=== PATIENT | male | born 1995 | race Caucasian/White ===

== ENCOUNTER 2019-04-10 22:38 | Inpatient (IN) ==
[2019-04-10 23:10] LABS: Basophils # 0.1 K/mcL (0.0-0.2); Basophils % 0.4 %; Eosinophils # 0.2 K/mcL (0.0-0.6); Eosinophils % 1.4 %; Hematocrit 47.3 % (37.5-50.1); Hemoglobin 15.9 g/dL (12.9-16.9); Immature Granulocytes % 0.4 % (0-4); Lymphocytes # 3.2 K/mcL (0.6-4.6); Lymphocytes % 22.4 %; Mean Corpuscular HGB Conc 33.6 g/dL (31.6-35.5); Mean Corpuscular Hemoglobin 31.1 pg (28.0-33.3); Mean Corpuscular Volume 92.6 fL (83.0-100.0); Mean Platelet Volume 9.2 fL (9.4-12.4); Monocytes # 0.9 K/mcL (0.0-1.3); Monocytes % 6.4 %; Neutrophils # 9.9 K/mcL (1.6-8.9); Platelet Count 269 K/mcL (140-400); Red Blood Count 5.11 M/mcL (4.19-5.50); Red Cell Distribution Width 12.6 % (11.5-14.5); White Blood Count 14.3 K/mcL (4.3-11.1)
[2019-04-10 23:11] LABS: Bilirubin,Urine Negative (Negative); Blood,Urine Negative (Negative); Clarity,Urine Clear (Clear); Color,Urine Yellow (Yellow); Glucose,Urine (UA) Normal (Normal); Ketones,Urine Negative (Negative); Leukocyte Esterase,Urine Negative (Negative); Nitrite,Urine Negative (Negative); Protein,Urine Negative (Neg-Trace); Specific Gravity,Urine 1.013 (1.010-1.025); Urobilinogen,Urine Normal (Normal)
[2019-04-10 23:21] LABS: Amphetamine Screen,Urine Negative ng/mL (Cutoff=1000); Barbiturate Screen,Urine Negative ng/mL (Cutoff=200); Benzodiazepines Screen,Urine Negative ng/mL (Cutoff=200); Cannabinoid Screen,Urine Negative ng/mL (Cutoff = 50); Cocaine Screen,Urine Negative ng/mL (Cutoff= 300); Opiate Screen,Urine Negative ng/mL (Cutoff=300); Phencyclidine Screen,Urine Negative ng/mL (Cutoff=25)
--- NOTE | 2019-04-10 23:26 | Emergency Department Note ---
Disposition Clinical Impression: Encounter for behavioral health screening, Self-harming behaviour Disposition: Admitted As Inpatient Condition: Good Time of Disposition: 03:47 General Adult HPI - General Chief complaint: ED Psychiatric Symptoms Stated complaint: "1a eval" Time Seen by Provider: 04/10/19 22:44 Source: patient, EMS Limitations: no limitations - History of Present Illness HPI Narrative: 23-year-old man, with significant substance abuse history, presents via EMS from a care home/treatment facility after screaming and losing his temper and having self harming behavior. Patient punched himself in the head multiple times after becoming frustratied. The patient currently does not have suicidal ideations, does not have homicidal ideations, has never had suicidal or homicidal thoughts in the past, does not have access to weapons. He currently does not have psychosis, does not have hallucinations, does not seem to be a harm to himself or others. Pain Scale: 0 - Related Data Previous Rx's Medication Instructions Recorded Ibuprofen [Motrin] 800 mg PO Q8HR PRN #30 tablet 03/17/18 Allergies Allergy/AdvReac Type Severity Reaction Status Date / Time No Known Allergies Allergy Verified 03/17/18 14:39 All systems ED: reviewed and negative except as stated. Review of Systems: As Per HPI Constitutional: Denies: fever, chills, weakness Psychiatric: Denies: as per HPI, anxiety, depression, suicidal thoughts, homicidal thoughts, auditory hallucinations, visual hallucinations Past Medical History - Past Medical History Medical history: Reports: no medical history Psychiatric history: Reports: no psych history - Social History Smoking Status: Current every day smoker Smokeless Tobacco Status: Yes Alcohol use: Reports: occasionally Drug use: Reports: cocaine, marijuana, methamphetamine, IV Drug Use Physical Exam - General Limitations: no limitations General appearance: alert, in no apparent distress Course Course Narrative: Basic labs will be ordered including urine tox screen to clear the patient medically is. Behavioral health will see him once he has clearance Vital Signs Temperature 98.2 F 04/10/19 22:41 Pulse Rate 95 04/10/19 22:41 Respiratory Rate 16 04/10/19 22:41 Blood Pressure 154/99 04/10/19 22:41 O2 Sat by Pulse Oximetry 98 04/10/19 22:41 Temperature 98.2 F 04/10/19 22:41 Pulse Rate 95 04/10/19 22:41 Respiratory Rate 16 04/10/19 22:41 Blood Pressure 154/99 04/10/19 22:41 O2 Sat by Pulse Oximetry 98 04/10/19 22:41 Oxygen Delivery Oxygen Delivery Room Air Medical Decision Making - MDM Narrative Medical decision making narrative: Patient was treated upon arrival to the emergency Department, basic labs were drawn, including a urine tox screen, CBC, and BMP. At this time, the patient is resting comfortably, he does not endorse suicidal ideation to me or homicidal ideation. He said he is frustrated with his life, because he has been in and out of halfway, and has had significant drug issues in the past. HE punched himself in the face out of frustration, but he denied ever having any suicidal thoughts Currently, he lives in a care home/drug rehabilitation. He had no access to weapons. He is not hearing any voices, has no psychosis, and is thinking linearly. At this time, his labs are unremarkable, I believe he is able to be medically cleared and can be seen by behavioral health - Medical Records Medical records reviewed: Yes I reviewed the patient's medical records. - Lab Data Lab results reviewed: Yes I reviewed the patient's lab results. Result diagrams: 04/10/19 22:59 04/10/19 22:57 Lab Results 04/10/19 04/10/19 04/10/19 Range/Units 22:56 22:56 22:57 WBC (4.3-11.1) K/mcL RBC (4.19-5.50) M/mcL Hgb (12.9-16.9) g/dL Hct (37.5-50.1) % MCV (83.0-100.0) fL MCH (28.0-33.3) pg MCHC (31.6-35.5) g/dL RDW (11.5-14.5) % Plt Count (140-400) K/mcL MPV (9.4-12.4) fL Immature Gran % (0-4) % Seg Neutrophils % % Lymphocytes % % Monocytes % % Eosinophils % % Basophils % % Neutrophils # (1.6-8.9) K/mcL Lymphocytes # (0.6-4.6) K/mcL Monocytes # (0.0-1.3) K/mcL Eosinophils # (0.0-0.6) K/mcL Basophils # (0.0-0.2) K/mcL Sodium 137 (136-145) mEq/L Potassium 3.5 (3.5-5.1) mEq/L Chloride 103 (98-107) mEq/L Carbon Dioxide 26 (23-29) mEq/L BUN 13 (6-20) mg/dL Creatinine 1.12 (0.70-1.30) mg/dL Est GFR ( Amer) > 60 (> 60) Est GFR (Non-Af Amer) > 60 (> 60) BUN/Creatinine Ratio 12 (6-26) Glucose 108 H (70-105) mg/dL Calculated Osmolality 285 (280-300) Calcium 9.7 (8.6-10.3) mg/dL Total Bilirubin 0.4 (0.3-1.0) mg/dL Direct Bilirubin 0.1 (0.0-0.2) mg/dL Indirect Bilirubin 0.3 (0.0-1.2) mg/dL AST 30 (13-39) Units/L ALT 48 (7-52) Units/L Alkaline Phosphatase 74 (34-104) Units/L Serum Total Protein 7.8 (6.4-8.9) g/dL Albumin 5.1 (3.5-5.7) g/dL Globulin 2.7 (2.4-3.5) g/dL Albumin/Globulin Ratio 1.9 (1.1-2.2) TSH 2.353 (0.340-5.600) mcIU/mL Urine Color Yellow (Yellow) Urine Clarity Clear (Clear) Urine pH 7.0 (5.0-8.0) pH Units Ur Specific [place] 1.013 (1.010-1.025) Urine Protein Negative (Neg-Trace) mg/dL Urine Glucose (UA) Normal (Normal) mg/dL Urine Ketones Negative (Negative) mg/dL Urine Blood Negative (Negative) Urine Nitrite Negative (Negative) Urine Bilirubin Negative (Negative) Urine Urobilinogen Normal (Normal) mg/dL Ur Leukocyte Esterase Negative (Negative) Salicylates < 2.5 L (15.0-30.0) mg/dL Urine Opiates Screen Negative (Kvwoqh=645) ng/mL Ur Buprenorphine Scrn Negative (Cutoff=5) ng/mL Acetaminophen < 10 L (10-20) mcg/mL Ur Barbiturates Screen Negative (Ghqhzs=463) ng/mL Ur Phencyclidine Scrn Negative (Cutoff=25) ng/mL Ur Amphetamines Screen Negative (Fxaggk=3955) ng/mL U Benzodiazepines Scrn Negative (Umivsb=535) ng/mL Urine Cocaine Screen Negative (Cutoff= 300) ng/mL U Marijuana (THC) Screen Negative (Cutoff = 50) ng/mL Ur Drug Screen Interp See Below Ethyl Alcohol < 10 (Less than 10) mg/dL 04/10/19 Range/Units 22:59 WBC 14.3 H (4.3-11.1) K/mcL RBC 5.11 (4.19-5.50) M/mcL Hgb 15.9 (12.9-16.9) g/dL Hct 47.3 (37.5-50.1) % MCV 92.6 (83.0-100.0) fL MCH 31.1 (28.0-33.3) pg MCHC 33.6 (31.6-35.5) g/dL RDW 12.6 (11.5-14.5) % Plt Count 269 (140-400) K/mcL MPV 9.2 L (9.4-12.4) fL Immature Gran % 0.4 (0-4) % Seg Neutrophils % 69.0 % Lymphocytes % 22.4 % Monocytes % 6.4 % Eosinophils % 1.4 % Basophils % 0.4 % Neutrophils # 9.9 H (1.6-8.9) K/mcL Lymphocytes # 3.2 (0.6-4.6) K/mcL Monocytes # 0.9 (0.0-1.3) K/mcL Eosinophils # 0.2 (0.0-0.6) K/mcL Basophils # 0.1 (0.0-0.2) K/mcL Sodium (136-145) mEq/L Potassium (3.5-5.1) mEq/L Chloride (98-107) mEq/L Carbon Dioxide (23-29) mEq/L BUN (6-20) mg/dL Creatinine (0.70-1.30) mg/dL Est GFR ( Amer) (> 60) Est GFR (Non-Af Amer) (> 60) BUN/Creatinine Ratio (6-26) Glucose (70-105) mg/dL Calculated Osmolality (280-300) Calcium (8.6-10.3) mg/dL Total Bilirubin (0.3-1.0) mg/dL Direct Bilirubin (0.0-0.2) mg/dL Indirect Bilirubin (0.0-1.2) mg/dL AST (13-39) Units/L ALT (7-52) Units/L Alkaline Phosphatase (34-104) Units/L Serum Total Protein (6.4-8.9) g/dL Albumin (3.5-5.7) g/dL Globulin (2.4-3.5) g/dL Albumin/Globulin Ratio (1.1-2.2) TSH (0.340-5.600) mcIU/mL Urine Color (Yellow) Urine Clarity (Clear) Urine pH (5.0-8.0) pH Units Ur Specific [place] (1.010-1.025) Urine Protein (Neg-Trace) mg/dL Urine Glucose (UA) (Normal) mg/dL Urine Ketones (Negative) mg/dL Urine Blood (Negative) Urine Nitrite (Negative) Urine Bilirubin (Negative) Urine Urobilinogen (Normal) mg/dL Ur Leukocyte Esterase (Negative) Salicylates (15.0-30.0) mg/dL Urine Opiates Screen (Ejutkn=966) ng/mL Ur Buprenorphine Scrn (Cutoff=5) ng/mL Acetaminophen (10-20) mcg/mL Ur Barbiturates Screen (Opgnix=461) ng/mL Ur Phencyclidine Scrn (Cutoff=25) ng/mL Ur Amphetamines Screen (Dzzjlo=1500) ng/mL U Benzodiazepines Scrn (Qkzvos=757) ng/mL Urine Cocaine Screen (Cutoff= 300) ng/mL U Marijuana (THC) Screen (Cutoff = 50) ng/mL Ur Drug Screen Interp Ethyl Alcohol (Less than 10) mg/dL
[2019-04-10 23:33] LABS: Acetaminophen < 10 mcg/mL (10-20); Alanine Aminotransferase 48 Units/L (7-52); Albumin 5.1 g/dL (3.5-5.7); Albumin/Globulin Ratio 1.9 (1.1-2.2); Alkaline Phosphatase 74 Units/L (34-104); Aspartate Amino Transferase 30 Units/L (13-39); BUN/Creatinine Ratio 12 (6-26); Bilirubin,Direct 0.1 mg/dL (0.0-0.2); Bilirubin,Indirect 0.3 mg/dL (0.0-1.2); Bilirubin,Total 0.4 mg/dL (0.3-1.0); Blood Urea Nitrogen 13 mg/dL (6-20); Calcium 9.7 mg/dL (8.6-10.3); Carbon Dioxide 26 mEq/L (23-29); Chloride 103 mEq/L (98-107); Ethanol < 10 mg/dL (Less than 10); Globulin 2.7 g/dL (2.4-3.5); Glucose 108 mg/dL (70-105); Osmolality,Calculated 285 (280-300); Potassium 3.5 mEq/L (3.5-5.1); Salicylate < 2.5 mg/dL (15.0-30.0); Sodium 137 mEq/L (136-145); Total Protein 7.8 g/dL (6.4-8.9); eGFR For African Americans > 60 (> 60); eGFR For Non-African Americans > 60 (> 60)
[2019-04-10 23:46] LABS: Thyroid Stimulating Hormone 2.353 mcIU/mL (0.340-5.600)
--- NOTE | 2019-04-11 01:10 | Emergency Department Note ---
Disposition Clinical Impression: Encounter for behavioral health screening, Self-harming behaviour Disposition: Admitted As Inpatient Condition: Good Time of Disposition: 03:47 General Adult HPI - General Chief complaint: ED Psychiatric Symptoms Stated complaint: "1a eval" Time Seen by Provider: 04/10/19 22:44 Source: patient, EMS Limitations: no limitations Nursing Notes Reviewed: Yes Vital Signs Reviewed: Yes - History of Present Illness Pain Scale: 0 - Related Data Previous Rx's Medication Instructions Recorded Ibuprofen [Motrin] 800 mg PO Q8HR PRN #30 tablet 03/17/18 Allergies Allergy/AdvReac Type Severity Reaction Status Date / Time No Known Allergies Allergy Verified 03/17/18 14:39 Constitutional: Denies: fever, chills, weakness Psychiatric: Denies: as per HPI, anxiety, depression, suicidal thoughts, homicidal thoughts, auditory hallucinations, visual hallucinations Past Medical History - Past Medical History Medical history: Reports: no medical history Psychiatric history: Reports: no psych history - Social History Smoking Status: Current every day smoker Smokeless Tobacco Status: Yes Alcohol use: Reports: occasionally Drug use: Reports: cocaine, marijuana, methamphetamine, IV Drug Use Physical Exam - General Limitations: no limitations General appearance: alert, in no apparent distress Course Vital Signs Temperature 98.2 F 04/10/19 22:41 Pulse Rate 95 04/10/19 22:41 Respiratory Rate 16 04/10/19 22:41 Blood Pressure 154/99 04/10/19 22:41 O2 Sat by Pulse Oximetry 98 04/10/19 22:41 Temperature 98.2 F 04/10/19 22:41 Pulse Rate 95 04/10/19 22:41 Respiratory Rate 16 04/10/19 22:41 Blood Pressure 154/99 04/10/19 22:41 O2 Sat by Pulse Oximetry 98 04/10/19 22:41 Oxygen Delivery Oxygen Delivery Room Air Medical Decision Making - Lab Data Result diagrams: 04/10/19 22:59 04/10/19 22:57 Lab Results 04/10/19 04/10/19 04/10/19 Range/Units 22:56 22:56 22:57 WBC (4.3-11.1) K/mcL RBC (4.19-5.50) M/mcL Hgb (12.9-16.9) g/dL Hct (37.5-50.1) % MCV (83.0-100.0) fL MCH (28.0-33.3) pg MCHC (31.6-35.5) g/dL RDW (11.5-14.5) % Plt Count (140-400) K/mcL MPV (9.4-12.4) fL Immature Gran % (0-4) % Seg Neutrophils % % Lymphocytes % % Monocytes % % Eosinophils % % Basophils % % Neutrophils # (1.6-8.9) K/mcL Lymphocytes # (0.6-4.6) K/mcL Monocytes # (0.0-1.3) K/mcL Eosinophils # (0.0-0.6) K/mcL Basophils # (0.0-0.2) K/mcL Sodium 137 (136-145) mEq/L Potassium 3.5 (3.5-5.1) mEq/L Chloride 103 (98-107) mEq/L Carbon Dioxide 26 (23-29) mEq/L BUN 13 (6-20) mg/dL Creatinine 1.12 (0.70-1.30) mg/dL Est GFR ( Amer) > 60 (> 60) Est GFR (Non-Af Amer) > 60 (> 60) BUN/Creatinine Ratio 12 (6-26) Glucose 108 H (70-105) mg/dL Calculated Osmolality 285 (280-300) Calcium 9.7 (8.6-10.3) mg/dL Total Bilirubin 0.4 (0.3-1.0) mg/dL Direct Bilirubin 0.1 (0.0-0.2) mg/dL Indirect Bilirubin 0.3 (0.0-1.2) mg/dL AST 30 (13-39) Units/L ALT 48 (7-52) Units/L Alkaline Phosphatase 74 (34-104) Units/L Serum Total Protein 7.8 (6.4-8.9) g/dL Albumin 5.1 (3.5-5.7) g/dL Globulin 2.7 (2.4-3.5) g/dL Albumin/Globulin Ratio 1.9 (1.1-2.2) TSH 2.353 (0.340-5.600) mcIU/mL Urine Color Yellow (Yellow) Urine Clarity Clear (Clear) Urine pH 7.0 (5.0-8.0) pH Units Ur Specific [place] 1.013 (1.010-1.025) Urine Protein Negative (Neg-Trace) mg/dL Urine Glucose (UA) Normal (Normal) mg/dL Urine Ketones Negative (Negative) mg/dL Urine Blood Negative (Negative) Urine Nitrite Negative (Negative) Urine Bilirubin Negative (Negative) Urine Urobilinogen Normal (Normal) mg/dL Ur Leukocyte Esterase Negative (Negative) Salicylates < 2.5 L (15.0-30.0) mg/dL Urine Opiates Screen Negative (Ppchqj=254) ng/mL Ur Buprenorphine Scrn Negative (Cutoff=5) ng/mL Acetaminophen < 10 L (10-20) mcg/mL Ur Barbiturates Screen Negative (Ckzjdh=535) ng/mL Ur Phencyclidine Scrn Negative (Cutoff=25) ng/mL Ur Amphetamines Screen Negative (Icqvgy=2471) ng/mL U Benzodiazepines Scrn Negative (Tijlvc=861) ng/mL Urine Cocaine Screen Negative (Cutoff= 300) ng/mL U Marijuana (THC) Screen Negative (Cutoff = 50) ng/mL Ur Drug Screen Interp See Below Ethyl Alcohol < 10 (Less than 10) mg/dL 04/10/19 Range/Units 22:59 WBC 14.3 H (4.3-11.1) K/mcL RBC 5.11 (4.19-5.50) M/mcL Hgb 15.9 (12.9-16.9) g/dL Hct 47.3 (37.5-50.1) % MCV 92.6 (83.0-100.0) fL MCH 31.1 (28.0-33.3) pg MCHC 33.6 (31.6-35.5) g/dL RDW 12.6 (11.5-14.5) % Plt Count 269 (140-400) K/mcL MPV 9.2 L (9.4-12.4) fL Immature Gran % 0.4 (0-4) % Seg Neutrophils % 69.0 % Lymphocytes % 22.4 % Monocytes % 6.4 % Eosinophils % 1.4 % Basophils % 0.4 % Neutrophils # 9.9 H (1.6-8.9) K/mcL Lymphocytes # 3.2 (0.6-4.6) K/mcL Monocytes # 0.9 (0.0-1.3) K/mcL Eosinophils # 0.2 (0.0-0.6) K/mcL Basophils # 0.1 (0.0-0.2) K/mcL Sodium (136-145) mEq/L Potassium (3.5-5.1) mEq/L Chloride (98-107) mEq/L Carbon Dioxide (23-29) mEq/L BUN (6-20) mg/dL Creatinine (0.70-1.30) mg/dL Est GFR ( Amer) (> 60) Est GFR (Non-Af Amer) (> 60) BUN/Creatinine Ratio (6-26) Glucose (70-105) mg/dL Calculated Osmolality (280-300) Calcium (8.6-10.3) mg/dL Total Bilirubin (0.3-1.0) mg/dL Direct Bilirubin (0.0-0.2) mg/dL Indirect Bilirubin (0.0-1.2) mg/dL AST (13-39) Units/L ALT (7-52) Units/L Alkaline Phosphatase (34-104) Units/L Serum Total Protein (6.4-8.9) g/dL Albumin (3.5-5.7) g/dL Globulin (2.4-3.5) g/dL Albumin/Globulin Ratio (1.1-2.2) TSH (0.340-5.600) mcIU/mL Urine Color (Yellow) Urine Clarity (Clear) Urine pH (5.0-8.0) pH Units Ur Specific [place] (1.010-1.025) Urine Protein (Neg-Trace) mg/dL Urine Glucose (UA) (Normal) mg/dL Urine Ketones (Negative) mg/dL Urine Blood (Negative) Urine Nitrite (Negative) Urine Bilirubin (Negative) Urine Urobilinogen (Normal) mg/dL Ur Leukocyte Esterase (Negative) Salicylates (15.0-30.0) mg/dL Urine Opiates Screen (Nhofcf=147) ng/mL Ur Buprenorphine Scrn (Cutoff=5) ng/mL Acetaminophen (10-20) mcg/mL Ur Barbiturates Screen (Qwldsk=579) ng/mL Ur Phencyclidine Scrn (Cutoff=25) ng/mL Ur Amphetamines Screen (Wsedmz=1872) ng/mL U Benzodiazepines Scrn (Kmpwfy=791) ng/mL Urine Cocaine Screen (Cutoff= 300) ng/mL U Marijuana (THC) Screen (Cutoff = 50) ng/mL Ur Drug Screen Interp Ethyl Alcohol (Less than 10) mg/dL Attestation Statement - Attestation Attestation: I, Stew Alatorre MD, personally evaluated this patient and discussed their management with the resident physician. I reviewed the resident's note and agree with the documented findings, medical decision making, and plan of care. 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 He denies any injury from this. He states he was not wanting to hurt himself or kill himself. He denies any suicidal or homicidal ideation. He has not used any meth for 8 months. He denies prior history of psychiatric issues or suicidal ideation. He is not on any psychiatric medications. Patient sent here for psychiatric evaluation. On examination patient is a well-developed well-nourished male in no acute distress. He is alert and oriented 3. There is no cyanosis or diaphoresis. Breath sounds are clear and equal bilaterally. Heart regular rate and rhythm. Abdomen is soft and nontender with normal bowel sounds. Labs reviewed and unremarkable. Patient medically cleared for psychiatric evaluation. [address] psychiatry department was consulted and evaluated patient in the emergency department. After evaluation patient is being admitted to the 1A psychiatric unit.
[2019-04-11] MEDS ORDERED: *HR* LORazepam 1 MG TABLET PO PRN (03:59)
[2019-04-11] MEDS ORDERED: Haloperidol Lactate 5 MG/ML VIAL IM PRN (03:59)
[2019-04-11] MEDS ORDERED: Mag Hydrox/Al Hydrox/Simeth 30 ML UDC PO PRN (03:59)
[2019-04-11] MEDS ORDERED: Ibuprofen 400 MG TABLET PO PRN (03:59)
[2019-04-11] MEDS ORDERED: *HR* LORazepam 2 MG/ML VIAL IM PRN (03:59)
[2019-04-11] MEDS ORDERED: MOM Conc 10 ML UD.LIQ PO PRN (03:59)
--- NOTE | 2019-04-11 09:12 | Psychiatry History & Physical ---
Date of Encounter: 04/11/19 Time of Encounter: 08:40 History of Present Illness Patient Stated Chief Complaint: "My brain works really fast" Medicare Admission Attestation: For traditional Medicare patients the provided hospital inpatient services are reasonable and necessary and in the case of services not specified as inpatient-only under 42 CFR 419.22 (n), that they are appropriately provided as inpatient services in accordance 42 CFR 412.3. For Critical Access Hospital the patient may reasonably be expected to be discharged or transferred to a hospital within 96 hours after admission to the Critical Access Hospital. Admitted From: Direct Admit (From Rehab) Plans for Post Hospital Care: Transfer Inp Rehab Fac History of Present Illness: Mr. Whipple is a 23 year old male who has recently been staying at an inpatient court ordered rehab facility. He states he went 3 days without sleeping but admits to feeling tired during those 3 days but "I just couldn't fall asleep." He reports that he began "hitting my head against the wall out of frustration." He admits to previous episodes of sleeplessness in the past and states he was diagnosed with bipolar disorder. He denies any intent to self harm but states "I just needed to vent my frustration." He also reports that he was pacing during much of that 3 day period without sleep. Staff reports he slept last night and he estimates he received "slept 8 hours" last night. He admits to feeling tired today and plans on "catching up on sleep." He denies SI, HI, AH or VH at this time. He describes his mood as "tired." Past Med Surg Social Fam HX - Past Medical History Medical history: no medical history, IV drug use - Past Psychiatric History Psychiatric history: Reports: bipolar Past psychiatric history details: Patient reports 2 previous inpatient psychiatric hospitalizations. He states he was treated for Bipolar disorder on one admission, and SI on a seperate. He denies any previous suicide attempts. He admits to starting multiple medications which he couldn't recall the names of but denies remembering any medication which has been beneficial. Family psychiatric history: Yes Family Psychiatric History Details: Reports his mother was diagnosed with "PTSD, Anxiety, and Bipolar." Family History of Suicide: Unknown - Past Surgical History Surgical History: no surgical history - Social History Smoking Status: Current every day smoker Smokeless Tobacco Status: No Alcohol use: occasionally Drug use: none, cocaine, marijuana, methamphetamine, IV Drug Use Current living situation: Other (Inpatient rehab facility) Activity Level: Independent ambulation Recent Out of Country Travel Within the Last 8 Weeks: No Exposure or Possible Exposure to Illness During Travel: No Medications & Allergies Ibuprofen [Motrin] 800 mg PO Q8HR PRN #30 tablet 03/17/18 [Rx] Allergy/AdvReac Type Severity Reaction Status Date / Time No Known Allergies Allergy Verified 03/17/18 14:39 Review of Systems Constitutional: Denies: fever, chills Cardiovascular: Denies: chest pain, palpitations Respiratory: Denies: cough, dyspnea Gastrointestinal: Denies: nausea, vomiting, diarrhea Musculoskeletal: Denies: back pain, joint pain Integumentary: Denies: rash, lesions Neurological: Denies: weakness, numbness, paresthesias Psychiatric: Reports: anxiety, abnormal sleep pattern, difficulty concentrating. Denies: depression, suicidal ideation, homicidal ideation, auditory hallucinations, visual hallucinations Endocrine: Denies: heat or cold intolerance Exam - HEENT Head exam IM: Present: atraumatic Eye exam IM: Present: normal appearance. Absent: conjunctival injection ENT exam IM: Present: mucous membranes moist - Neurological Neurological exam: Present: alert, no focal deficits - Respiratory Respiratory exam IM: Absent: accessory muscle use, chest wall tenderness - GI/Abdominal GI/Abdominal exam IM: Absent: distended, guarding - Extremities Extremities exam IM: Present: full ROM. Absent: calf tenderness, cyanotic - Skin Skin exam IM: Absent: abrasion, cyanosis - Constitutional Vitals: Temp Pulse Resp BP Pulse Ox 98.1 F 84 18 130/91 98 04/11/19 05:20 04/11/19 05:20 04/11/19 05:20 04/11/19 05:20 04/11/19 05:20 General appearance: age & developmentally appropriate, well-groomed, well- nourished - Musculoskeletal Gait: normal Station: relaxed Strength & Tone: normal for patient - Psychiatric Patient Orientation: Yes Person, Yes Time, Yes Place, Yes Circumstance Level of alertness: Alert Behavior: calm, cooperative Psychomotor activity: Normal Eye Contact: Minimal Contact Mood Description: Depressed Patient description of mood: "Tired" Affect description: congruent with mood Speech Volume: Soft/Quiet Speech pattern: normal rate, spontaneous, appropriate, mumbled Language & Vocabulary: consistent with education Thought Process: Intact, Logical, Linear, Goal Oriented Thought Content: Yes Intact, No Suicidal ideation, No Homicidal ideation, No Paranoid delusion Perceptual Disturbances: No Reacting to internal stimuli, No Auditory hallucinations, No Visual hallucinations, No Tactile hallucinations Attention Span Ability: Capable of Focused Attention, Capable of Sustained Attention Memory Description: Grossly Intact Patient Reliability: Reliable Historian Fund of knowledge: Yes average Intelligence Estimate: Average Judgment: Limited Insight: Minimal Results - Drug Levels and Toxicology Drug Levels and Toxicology: Drug Levels and Toxicity 04/10/19 04/10/19 22:56 22:57 Urine Opiates Screen Negative Acetaminophen < 10 L Ur Barbiturates Screen Negative Ur Phencyclidine Scrn Negative Ur Amphetamines Screen Negative U Benzodiazepines Scrn Negative Urine Cocaine Screen Negative U Marijuana (THC) Screen Negative Ethyl Alcohol < 10 - Labs Labs: Laboratory Last Values WBC 14.3 K/mcL (4.3-11.1) H 04/10/19 22:59 RBC 5.11 M/mcL (4.19-5.50) 04/10/19 22:59 Hgb 15.9 g/dL (12.9-16.9) 04/10/19 22:59 Hct 47.3 % (37.5-50.1) 04/10/19 22:59 MCV 92.6 fL (83.0-100.0) 04/10/19 22:59 MCH 31.1 pg (28.0-33.3) 04/10/19 22:59 MCHC 33.6 g/dL (31.6-35.5) 04/10/19 22:59 RDW 12.6 % (11.5-14.5) 04/10/19 22:59 Plt Count 269 K/mcL (140-400) 04/10/19 22:59 MPV 9.2 fL (9.4-12.4) L 04/10/19 22:59 Immature Gran % 0.4 % (0-4) 04/10/19 22:59 Seg Neutrophils % 69.0 % 04/10/19 22:59 Lymphocytes % 22.4 % 04/10/19 22:59 Monocytes % 6.4 % 04/10/19 22:59 Eosinophils % 1.4 % 04/10/19 22:59 Basophils % 0.4 % 04/10/19 22:59 Neutrophils # 9.9 K/mcL (1.6-8.9) H 04/10/19 22:59 Lymphocytes # 3.2 K/mcL (0.6-4.6) 04/10/19 22:59 Monocytes # 0.9 K/mcL (0.0-1.3) 04/10/19 22:59 Eosinophils # 0.2 K/mcL (0.0-0.6) 04/10/19 22:59 Basophils # 0.1 K/mcL (0.0-0.2) 04/10/19 22:59 Sodium 137 mEq/L (136-145) 04/10/19 22:57 Potassium 3.5 mEq/L (3.5-5.1) 04/10/19 22:57 Chloride 103 mEq/L (98-107) 04/10/19 22:57 Carbon Dioxide 26 mEq/L (23-29) 04/10/19 22:57 BUN 13 mg/dL (6-20) 04/10/19 22:57 Creatinine 1.12 mg/dL (0.70-1.30) 04/10/19 22:57 Est GFR ( Amer) > 60 (> 60) 04/10/19 22:57 Est GFR (Non-Af Amer) > 60 (> 60) 04/10/19 22:57 BUN/Creatinine Ratio 12 (6-26) 04/10/19 22:57 Glucose 108 mg/dL (70-105) H 04/10/19 22:57 Calculated Osmolality 285 (280-300) 04/10/19 22:57 Calcium 9.7 mg/dL (8.6-10.3) 04/10/19 22:57 Total Bilirubin 0.4 mg/dL (0.3-1.0) 04/10/19 22:57 Direct Bilirubin 0.1 mg/dL (0.0-0.2) 04/10/19 22:57 Indirect Bilirubin 0.3 mg/dL (0.0-1.2) 04/10/19 22:57 AST 30 Units/L (13-39) 04/10/19 22:57 ALT 48 Units/L (7-52) 04/10/19 22:57 Alkaline Phosphatase 74 Units/L (34-104) 04/10/19 22:57 Serum Total Protein 7.8 g/dL (6.4-8.9) 04/10/19 22:57 Albumin 5.1 g/dL (3.5-5.7) 04/10/19 22:57 Globulin 2.7 g/dL (2.4-3.5) 04/10/19 22:57 Albumin/Globulin Ratio 1.9 (1.1-2.2) 04/10/19 22:57 TSH 2.353 mcIU/mL (0.340-5.600) 04/10/19 22:57 Urine Color Yellow (Yellow) 04/10/19 22:56 Urine Clarity Clear (Clear) 04/10/19 22:56 Urine pH 7.0 pH Units (5.0-8.0) 04/10/19 22:56 Ur Specific [place] 1.013 (1.010-1.025) 04/10/19 22:56 Urine Protein Negative mg/dL (Neg-Trace) 04/10/19 22:56 Urine Glucose (UA) Normal mg/dL (Normal) 04/10/19 22:56 Urine Ketones Negative mg/dL (Negative) 04/10/19 22:56 Urine Blood Negative (Negative) 04/10/19 22:56 Urine Nitrite Negative (Negative) 04/10/19 22:56 Urine Bilirubin Negative (Negative) 04/10/19 22:56 Urine Urobilinogen Normal mg/dL (Normal) 04/10/19 22:56 Ur Leukocyte Esterase Negative (Negative) 04/10/19 22:56 Salicylates < 2.5 mg/dL (15.0-30.0) L 04/10/19 22:57 Urine Opiates Screen Negative ng/mL (Dhqpfh=178) 04/10/19 22:56 Ur Buprenorphine Scrn Negative ng/mL (Cutoff=5) 04/10/19 22:56 Acetaminophen < 10 mcg/mL (10-20) L 04/10/19 22:57 Ur Barbiturates Screen Negative ng/mL (Xqxflm=102) 04/10/19 22:56 Ur Phencyclidine Scrn Negative ng/mL (Cutoff=25) 04/10/19 22:56 Ur Amphetamines Screen Negative ng/mL (Cmdnjt=9275) 04/10/19 22:56 U Benzodiazepines Scrn Negative ng/mL (Ztyuzt=025) 04/10/19 22:56 Urine Cocaine Screen Negative ng/mL (Cutoff= 300) 04/10/19 22:56 U Marijuana (THC) Screen Negative ng/mL (Cutoff = 50) 04/10/19 22:56 Ur Drug Screen Interp See Below 04/10/19 22:56 Ethyl Alcohol < 10 mg/dL (Less than 10) 04/10/19 22:57 Assessment and Plan (1) Bipolar disorder with current episode depressed Current visit: Yes Status: Acute Plan: Admit inpatient for safety and stabilization, Encourage participation in unit milieu, Group Therapy, Monitor sleep Additional Plan: Due to patients recent self-injurious behavior and concern for manic episode, he would benefit from brief psychiatric hospitalization for stabilization at this time. Discussed Lamictal with Mr. Whipple including most common side effects as well as risk benefits. We discussed the need to monitor for the development of a rash and what rash characteristics to look out for. Risks, benefits, side effects, alternatives discussed w/pt: Yes Patient agreeable to treatment: Yes Plans for Post Hospital Care: Transfer Other (To inpatient rehab) Qualifiers: Current episode severity: severe Psychotic features: without psychotic features Qualified Code(s): F31.4 - Bipolar disorder, current episode depressed, severe, without psychotic features (2) Self-harming behaviour Current visit: Yes Status: Acute Plan: Admit inpatient for safety and stabilization, Encourage participation in unit milieu, Group Therapy, Monitor sleep, Monitor appetite Risks, benefits, side effects, alternatives discussed w/pt: Yes Patient agreeable to treatment: Yes Plans for Post Hospital Care: Transfer Other (back to inpatient rheab) - Attending Attestation I examined this patient and my medical decision-making was reviewed with the Resident Physician. I agree with the documented findings, disposition and treatment plan as described except to the extent set forth below. Agree with mental status. Agree with plan. Patient aare of risks of Herb's Guy and other potentially fatal skin side effects.
[2019-04-11] MEDS: hydrOXYzine pamoate 25 MG CAPSULE PO PRN (20:36)
[2019-04-11] MEDS: Nicotine 2 MG GUM BC PRN (20:36)
[2019-04-11] MEDS: traZODone 50 MG TABLET PO PRN (20:36)
--- NOTE | 2019-04-12 10:02 | Psychiatry Progress Note ---
Date of Encounter: 04/12/19 Time of Encounter: 08:45 Subjective Interval history: Mr. Whipple was seen resting comfortably in his room. He states "I'm doing better today' and "my thoughts are slowing down." He reports sleeping well last night and admits staying in his bed throughout much of the day yesterday. Staff reports he only left his room for meals but otherwise remained in bed. Given his recent 3 day period without sleep this is understandable. Discussed with patient getting more involved in groups today. He stated "I'll check it out." He denies SI, HI, AH or VH. Review of Systems Psychiatric: Reports: anxiety, abnormal sleep pattern, difficulty concentrating. Denies: depression, suicidal ideation, homicidal ideation, auditory hallucinations, visual hallucinations Results - Vital Signs Vital Signs: Temp Pulse Resp BP Pulse Ox 97.9 F 91 18 130/70 98 04/12/19 09:00 04/12/19 09:00 04/12/19 09:00 04/12/19 09:00 04/12/19 09:00 Assessment and Plan (1) Bipolar disorder with current episode depressed Current visit: Yes Status: Acute Plan: Continue hospitalization, Encourage participation in unit milieu, Group Therapy, Monitor sleep, Monitor appetite Risks, benefits, side effects, alternatives discussed w/pt: Yes Patient agreeable to treatment: Yes Qualifiers: Current episode severity: severe Psychotic features: without psychotic features Qualified Code(s): F31.4 - Bipolar disorder, current episode depressed, severe, without psychotic features (2) Self-harming behaviour Current visit: Yes Status: Resolved Plan: Continue hospitalization, Suicide Precautions per unit protocol, Encourage participation in unit milieu, Group Therapy, Monitor sleep, Monitor appetite Risks, benefits, side effects, alternatives discussed w/pt: Yes Patient agreeable to treatment: Yes Consult Discharge Plan - Plan Referrals: NONE,PCP [Primary Care Provider] - - Attending Attestation I examined this patient and my medical decision-making was reviewed with the Resident Physician. I agree with the documented findings, disposition and treatment plan as described except to the extent set forth below. Agree with mental status Agree with Plan Psychiatry Exam - Constitutional Vitals: Temp Pulse Resp BP Pulse Ox 97.9 F 91 18 130/70 98 04/12/19 09:00 04/12/19 09:00 04/12/19 09:00 04/12/19 09:00 04/12/19 09:00 General appearance: age & developmentally appropriate, unkempt - Musculoskeletal Gait: normal Station: relaxed - Psychiatric Patient Orientation: Yes Person, Yes Time, Yes Place, Yes Circumstance Level of alertness: Alert Behavior: calm, cooperative Psychomotor activity: Normal Eye Contact: Minimal Contact Mood Description: Depressed Patient description of mood: "doing better" Affect description: blunted Speech Volume: Normal Speech pattern: normal rate, normal rhythm, normal tone Language & Vocabulary: consistent with education Thought Process: Intact, Logical, Linear Thought Content: Yes Intact, No Suicidal ideation, No Homicidal ideation, No Paranoid delusion Perceptual Disturbances: No Reacting to internal stimuli, No Auditory hallucinations, No Visual hallucinations Attention Span Ability: Capable of Focused Attention, Capable of Sustained Attention Memory Description: Grossly Intact Patient Reliability: Reliable Historian Fund of knowledge: Yes average Intelligence Estimate: Average Judgment: Limited Insight: Partial
[2019-04-12] MEDS: Nicotine 2 MG GUM BC PRN ×2 (15:58→19:40)
[2019-04-12] MEDS: traZODone 50 MG TABLET PO PRN (20:49)
[2019-04-12] MEDS: hydrOXYzine pamoate 25 MG CAPSULE PO PRN (20:49)
[2019-04-12] MEDS ORDERED: lamoTRIgine 25 MG TABLET PO SCH (21:00)
[2019-04-13 08:55] VITALS: BP 113/74
[2019-04-13] MEDS: Nicotine 2 MG GUM BC PRN (09:39)
--- NOTE | 2019-04-13 10:15 | Discharge Summary ---
Date of Encounter: 04/13/19 Time of Encounter: 08:55 Diagnosis - Discharge Diagnosis (1) Bipolar disorder with current episode depressed Priority: Primary Status: Acute Qualifiers: Current episode severity: severe Psychotic features: without psychotic features Qualified Code(s): F31.4 - Bipolar disorder, current episode depressed, severe, without psychotic features (2) Self-harming behaviour Status: Resolved Medications - Discharge Medications Prescriptions: lamoTRIgine [Lamictal] 25 mg PO HS #15 tablet traZODone [TraZODone] 50 mg PO HS PRN #15 tablet PRN Reason: Insomnia hydrOXYzine pamoate [Vistaril] 25 mg PO TID PRN #45 capsule PRN Reason: Anxiety hydrOXYzine pamoate [Vistaril] 25 mg PO TID PRN #45 capsule 04/13/19 [Rx] lamoTRIgine [Lamictal] 25 mg PO HS #15 tablet 04/13/19 [Rx] traZODone [TraZODone] 50 mg PO HS PRN #15 tablet 04/13/19 [Rx] Allergy/AdvReac Type Severity Reaction Status Date / Time No Known Allergies Allergy Verified 04/12/19 10:57 Results Procedures and tests throughout hospitalization: Completed Lab Orders Category Date Time Status Acetaminophen Stat Lab 04/10/19 22:57 Completed Basic Metabolic Panel Stat Lab 04/10/19 22:57 Completed Complete Blood Count [HEME] Stat Lab 04/10/19 22:59 Completed Drug Screen, Urine [UCHEM] Stat Lab 04/10/19 22:56 Completed Ethanol Stat Lab 04/10/19 22:57 Completed Hepatic Panel Stat Lab 04/10/19 22:57 Completed Salicylate Stat Lab 04/10/19 22:57 Completed Thyroid Stimulating Hormone Stat Lab 04/10/19 22:57 Completed Urinalysis reflex Microscopic [URIN] Stat Lab 04/10/19 22:56 Completed Provider Date of admission: 04/11/19 03:49 Primary care physician: PCP NONE Discharging clinician: Hanny Malone Psychiatry Exam - Constitutional Vitals: Temp Pulse Resp BP Pulse Ox 97.7 F 70 18 113/74 98 04/13/19 08:54 04/13/19 08:54 04/13/19 08:54 04/13/19 08:54 04/13/19 08:54 General appearance: age & developmentally appropriate, well-groomed, well- nourished - Musculoskeletal Gait: normal Station: relaxed Strength & Tone: normal for patient - Psychiatric Patient Orientation: Yes Person, Yes Time, Yes Place, Yes Circumstance Level of alertness: Alert Behavior: calm, cooperative Psychomotor activity: Normal Eye Contact: Maintains Eye Contact Mood Description: Euthymic/stable Patient description of mood: Good Affect description: congruent with mood, full range Speech Volume: Normal Speech pattern: normal rate, normal rhythm, normal tone, fluent, spontaneous Language & Vocabulary: consistent with education Thought Process: Linear, Goal Oriented Thought Content: No Suicidal ideation, No Homicidal ideation, No Overt delusions Perceptual Disturbances: No Auditory hallucinations, No Visual hallucinations Attention Span Ability: Capable of Focused Attention Memory Description: Grossly Intact Patient Reliability: Reliable Historian Fund of knowledge: Yes abstraction ability, Yes aware of current events Intelligence Estimate: Average Judgment: Good Insight: Full Hospital Course Hospital course: Mr. Whipple is a 23 year old male who was admitted from a rehabilitation facility with manic behaviors. He was started on Lamictal for his bipolar disorder as well as as needed trazodone for sleep and Vistaril for anxiety. Patient was educated of diagnosis and the risk-benefit side effects of this alternative treatment options and was monitored for responsiveness and side effects. Mood anxiety sleep and appetite interest improved as did future orientation. Self-harm thoughts subsided, thinking cleared, psychosis resolved, and mood stabilized. Patient was able to attend both individual and group therapy sessions as well as meet with the psychiatrist daily and urged to discuss any medication or treatment issues or other concerns. The patient was educated primarily by verbal means about their diagnosis and manifestations in their life. The option for treatment including group and individual therapy programming was offered to the patient in addition to the use of medications with all their potential risks, benefits, and side effects as well as the risks of not taking medication and non-adhereance were discussed with the patient at length. The patient was given the opportunity to ask questions and was noted to participate in the treatment in the planning process. The patient felt ready and eager to be discharged from the inpatient psychiatric unit to continue on with treatment as an outpatient. The patient agreed that is they were safe for this disposition. The patient was considered to be able to participate in informed consent and decision making with respect to medical, legal, and financial issues of the time of discharge. At the time of discharge the patient adamantly denied any concerns for lethality including suicidal or homicidal thoughts ideations or plans and was future oriented toward ongoing mental health care, medical follow-up and sobriety. Time spent discussing smoking cessation with patient: 3 to 10 minutes Does patient wish to continue nicotine replacement upon disc: No - Time Spent with Patient Total time spent providing and/or coordinating discharge services: 25 Less than 30 minutes Specific discharge activities: Interval history reviewed. Available labs reviewed . Psychotherapy provided. Patient had an opportunity to ask questions and address concerns. Patient was in agreement with the treatment plan. The risks benefits and side effects of medications were discussed with the patient, including alternatives and treatment. The patient was educated on the abstaining from any alcohol or illicit substances, following up with all scheduled appointments, and taking all medications as prescribed. The patient was educated on 90 meetings in 90 days and to find a sponsor. Assessment and Plan - Patient/Caregiver Discharge Instructions Activity: resume usual activities as tolerated Diet: regular diet Additional Instructions: Continue current medications. Follow up with outpatient mental health. Encourage continued therapy in a group or individual setting. The patient was discharged to home. - Follow up Plan Follow up with: NONE,PCP [Primary Care Provider] - Functional capacity at discharge: independent ambulation Overall status at discharge: Stable Disposition: Home, Self-Care Quality - Multiple Antipsychotics Patient discharged on 2 or more antipsychotic medications: No Procedures - Procedures Procedures: Medication Management, Crisis Stabilization, Supportive Therapy, Group Therapy, Psychoeducational Therapy
== END 2019-04-13 12:10 | disposition home or self-care (01) | DRG 753 ==
LOC: EMEROOARM 22:38 → 1ANU 04-11 03:49 → SUATTDRO 04-11 03:49 → 1ANU 04-11 04:11
PROVIDERS: ADMIT Psychiatry & Neurology Psychiatry; ATTEND Psychiatry & Neurology Psychiatry

== ENCOUNTER 2019-08-22 10:55 | Observation (INO) ==
[2019-08-22] MEDS ORDERED: Isovue-370 500 ML BOTTLE IVP ONE (11:01)
[2019-08-22] MEDS ORDERED: Ipratropium/Albuterol Neb 3 ML IH ONE (11:01)
[2019-08-22] MEDS ORDERED: 0.9 % Sodium Chloride 1,000 ML IVC ONE ×3 (11:01→13:18)
[2019-08-22] MEDS ORDERED: Doxycycline 100 MG CAPSULE PO ONE (11:06)
[2019-08-22] MEDS ORDERED: Piperacillin/Tazobactam 3.375 GM in 0.9 % Sodium Chloride Mini Bag 100 ML IVPB ONE (11:09)
[2019-08-22 12:01] LABS: Basophils % 0.2 %; Eosinophils # 0.1 K/mcL (0.0-0.6); Eosinophils % 0.4 %; Hematocrit 43.9 % (37.5-50.1); Hemoglobin 15.6 g/dL (12.9-16.9); Immature Granulocytes % 0.3 % (0-4); Lymphocytes # 1.9 K/mcL (0.6-4.6); Lymphocytes % 11.9 %; Mean Corpuscular HGB Conc 35.5 g/dL (31.6-35.5); Mean Corpuscular Volume 87.1 fL (83.0-100.0); Mean Platelet Volume 9.5 fL (9.4-12.4); Monocytes # 1.3 K/mcL (0.0-1.3); Monocytes % 8.5 %; Neutrophils # 12.4 K/mcL (1.6-8.9); Platelet Count 192 K/mcL (140-400); Red Blood Count 5.04 M/mcL (4.19-5.50); Red Cell Distribution Width 12.8 % (11.5-14.5); Segmented Neutrophils % 78.7 %; White Blood Count 15.7 K/mcL (4.3-11.1)
[2019-08-22 12:47] LABS: BUN/Creatinine Ratio 15 (6-26); Blood Urea Nitrogen 13 mg/dL (6-20); Calcium 9.4 mg/dL (8.6-10.3); Carbon Dioxide 21 mEq/L (23-29); Chloride 105 mEq/L (98-107); Glucose 112 mg/dL (70-105); Osmolality,Calculated 287 (280-300); Potassium 3.7 mEq/L (3.5-5.1); Sodium 138 mEq/L (136-145); Troponin I < 0.03 ng/mL (< 0.04); eGFR For African Americans > 60 (> 60); eGFR For Non-African Americans > 60 (> 60)
[2019-08-22 13:35] LABS: INR 1.1; Prothrombin Time 12.1 Seconds (9.4-12.1)
[2019-08-22 13:38] LABS: Activated Partial Thrombo Time 29.8 Seconds (26.0-36.0)
[2019-08-22] MEDS ORDERED: Naloxone 0.4 MG/ML INJ IVP PRN (15:58)
[2019-08-22] MEDS ORDERED: Acetaminophen 325 MG TABLET PO PRN (15:58)
[2019-08-22] MEDS ORDERED: Ondansetron 4 MG/2 ML VIAL IVP PRN (15:58)
[2019-08-22] MEDS ORDERED: Vancomycin 500 MG in 0.9 % Sodium Chloride Mini Bag 100 ML IVPB ONE (17:09)
[2019-08-22] MEDS ORDERED: OLANZapine 10 MG TAB.RAPDIS PO SCH (21:00)
[2019-08-22] MEDS: *HR* Heparin 5,000 UNIT/ML VIAL SQ SCH (21:16)
[2019-08-22 21:49] LABS: Amphetamine Screen,Urine Negative ng/mL (Cutoff=1000); Barbiturate Screen,Urine Negative ng/mL (Cutoff=200); Benzodiazepines Screen,Urine Negative ng/mL (Cutoff=200); Cannabinoid Screen,Urine Negative ng/mL (Cutoff = 50); Cocaine Screen,Urine Negative ng/mL (Cutoff= 300); Opiate Screen,Urine Negative ng/mL (Cutoff=300); Phencyclidine Screen,Urine Negative ng/mL (Cutoff=25)
[2019-08-23 05:01] LABS: Basophils % 0.3 %; Eosinophils # 0.3 K/mcL (0.0-0.6); Eosinophils % 3.7 %; Hematocrit 44.8 % (37.5-50.1); Hemoglobin 15.4 g/dL (12.9-16.9); Immature Granulocytes % 0.2 % (0-4); Lymphocytes # 2.7 K/mcL (0.6-4.6); Lymphocytes % 30.8 %; Mean Corpuscular HGB Conc 34.4 g/dL (31.6-35.5); Mean Corpuscular Hemoglobin 30.3 pg (28.0-33.3); Mean Platelet Volume 9.8 fL (9.4-12.4); Monocytes # 0.8 K/mcL (0.0-1.3); Neutrophils # 4.9 K/mcL (1.6-8.9); Platelet Count 200 K/mcL (140-400); Red Blood Count 5.09 M/mcL (4.19-5.50); Red Cell Distribution Width 12.8 % (11.5-14.5); White Blood Count 8.7 K/mcL (4.3-11.1)
[2019-08-23 05:10] LABS: BUN/Creatinine Ratio 17 (6-26); Blood Urea Nitrogen 14 mg/dL (6-20); Calcium 9.2 mg/dL (8.6-10.3); Carbon Dioxide 23 mEq/L (23-29); Chloride 106 mEq/L (98-107); Glucose 100 mg/dL (70-105); Magnesium 1.9 mg/dL (1.6-2.6); Osmolality,Calculated 289 (280-300); Potassium 3.9 mEq/L (3.5-5.1); Sodium 139 mEq/L (136-145); eGFR For African Americans > 60 (> 60); eGFR For Non-African Americans > 60 (> 60)
[2019-08-23] MEDS: *HR* Heparin 5,000 UNIT/ML VIAL SQ SCH (05:32)
[2019-08-23 06:54] VITALS: BP 123/71
[2019-08-23] MEDS ORDERED: Aminoglycoside Consult 1 EACH MC ONE (11:13)
[2019-08-23] MEDS ORDERED: Piperacillin/Tazobactam 3.375 GM in 0.9 % Sodium Chloride Mini Bag 100 ML IVPB SCH (20:00)
== END 2019-08-23 11:14 | disposition home or self-care (01) ==
LOC: SUATTDRO → 3BNU 10:55 → EMEROOARM 10:55 → SUATTDRO 16:58 → 3BNU 17:38
PROVIDERS: ADMIT Pharmacist; ATTEND Pharmacist